=== PATIENT | female | born 1945 | race Caucasian/White ===

== ENCOUNTER 2021-09-27 10:08 | Inpatient (IN) | payer MEDICAID ==
[~2021-09-27] VITALS: Ht 165.1 cm; Wt 73.1 kg
[~2021-09-27 10:08] MED LIST: ASPIR 8181 MG PER TUBE; ATORVASTATIN CA40 MG PER TUBE; BACLOFEN 10MG T10 MG PER TUBE; CALCIUM 500 +1 EAC5 PER TUBE; CARAFATE 1 GM TA1 G1 PER TUBE; COLACE100 MG PER TUBE; DUONEB 2.5-0.5 M3 ML INH; HYDROCODON-ACE1 EAC7 PER TUBE; IRON325 PER TUBE; LEVOTHYROXIN0.025 MG PER TUBE; LIDODERM 5%1 PATC1 TOP; NITROFURANTOIN50 M2 PER TUBE; PACERONE 200 M200 M1 PER TUBE; PANTOPRAZOLE SO40 M1 PER TUBE; ROBITUSSIN100 MG/53 PER TUBE; SENNA8.6 MG PER TUBE; SENOKOT-S1 TA1 PER TUBE; TOPROL XL25 MG PO; TRAMADOL 50 MG50 MG PER TUBE; TYLENOL325 MG PER TUBE; VITAMIN D1000 UNI1 PER TUBE
[2021-09-27 10:24] VITALS: BP 111/41
[2021-09-27 10:44] LABS: INFLUENZA A ANTIGEN Negative (Negative); INFLUENZA B ANTIGEN Negative (Negative)
[2021-09-27 10:49] LABS: ABSOLUTE LYMPHOCYTES 0.9 thou/uL (0.8-5.3); ABSOLUTE MONOCYTES 0.7 thou/uL (0.0-1.2); BASOPHILS 0.3 %; HEMATOCRIT 39.2 % (37.0-47.0); LYMPHOCYTES 13.3 %; MCH 30.5 pg (26.0-34.0); MCHC 33.1 g/dL (28.0-37.0); MCV 92.1 fL (80.0-100.0); MONOCYTES 10.1 %; MPV 8.5 fl. (7.2-11.1); NUCLEATED RBCS 0 /100WBC; PLATELET COUNT* 279 thou/uL (150-400); POLYS 76.3 %; RBC 4.26 mil/uL (4.20-5.00); RDW-CV 13.9 % (10.5-14.5); WBC 6.6 thou/uL (4.0-11.0)
[2021-09-27 11:00] LABS: CALCIUM 8.3 mg/dL (8.5-10.1)
[2021-09-27 11:04] LABS: POTASSIUM 3.4 mmol/L (3.5-5.1)
[2021-09-27 11:11] LABS: ALBUMIN 2.4 g/dL (3.4-5.0); TOTAL BILIRUBIN 0.7 mg/dL (<0.1-1.0); TOTAL PROTEIN 6.8 g/dL (6.4-8.2)
[2021-09-27 13:37] LABS: INR 3.4; PROTIME 33.3 Seconds (9.20-11.50)
--- NOTE | 2021-09-27 15:25 | EKG ---
[place] [address] ELECTROCARDIOGRAM REPORT Name: AKSHATFARIHADENISE WALL Room: [place] [address] ADM IN ..#: [id number] Admission: 09/27/21 Attend Phys: Terrence Mehta, Discharge: Date of : 45 Date of Service: 09/27/21 1035 Report #: [id number] THIS REPORT FOR: //name// [facility] ED Test Date: 2021-09-27 Test Time: 10:35:19 Pat Name: DENISE WAGGONER Department: Room: [facility] Gender: F Interactive Art Director: CALVIN : 1945 Requested By: Carine Horner Order Number: [id number] MD: Joshua Whitfield Measurements Intervals [place] Rate: 72 P: -18 FL: 221 QRS: -87 QRSD: 104 T: 34 QT: 440 QTc: 482 Interpretive Statements Sinus rhythm Probable left atrial enlargement Incomplete RBBB and LAFB Consider right ventricular hypertrophy Borderline prolonged QT interval No previous ECG available for comparison Electronically Signed On 09-27-2021 15:24:56 SENIOR TELECOMMUNICATIONS CONSULTANT by Joshua Whitfield [email or web address] <ELECTRONICALLY SIGNED> By: Joshua Whitfield MD, FACC 09/27/21 1524 1035 1035 Joshua Whitfield MD, FACC /EPI
[2021-09-27 15:45] VITALS: BP 110/48
[2021-09-27 18:31] VITALS: BP 98/37
[2021-09-27 18:50] VITALS: BP 108/40
[2021-09-27 21:00] VITALS: BP 93/42
[2021-09-28] VITALS: BP 117/53
[2021-09-28 04:00] VITALS: BP 126/45
[2021-09-28 05:26] LABS: ABSOLUTE LYMPHOCYTES 0.5 thou/uL (0.8-5.3); ABSOLUTE MONOCYTES 0.2 thou/uL (0.0-1.2); ABSOLUTE NEUTROPHILS 2.9 thou/uL (1.6-8.1); BASOPHILS 0.4 %; HEMATOCRIT 37.2 % (37.0-47.0); HEMOGLOBIN 12.2 gm/dL (12.0-15.0); LYMPHOCYTES 14.8 %; MCH 30.6 pg (26.0-34.0); MCHC 32.7 g/dL (28.0-37.0); MCV 93.6 fL (80.0-100.0); MONOCYTES 4.3 %; MPV 9.3 fl. (7.2-11.1); NUCLEATED RBCS 0 /100WBC; PLATELET COUNT* 263 thou/uL (150-400); POLYS 80.5 %; RBC 3.97 mil/uL (4.20-5.00); RDW-CV 14.4 % (10.5-14.5); WBC 3.6 thou/uL (4.0-11.0)
[2021-09-28 05:36] LABS: INR 3.8; PROTIME 37.3 Seconds (9.20-11.50)
[2021-09-28 05:37] LABS: CALCIUM 8.5 mg/dL (8.5-10.1); CREATININE 0.8 mg/dL (0.6-1.3); POTASSIUM 3.4 mmol/L (3.5-5.1)
[2021-09-28] MEDS ORDERED: KEPPRA750 MG PO (07:01)
[2021-09-28] MEDS ORDERED: KEPPRA100 MG/1 M PER TUBE (07:02)
[2021-09-28 08:00] VITALS: BP 111/45
[2021-09-28 11:30] VITALS: BP 97/47
[2021-09-28 15:45] VITALS: BP 103/45
[2021-09-28 20:30] VITALS: BP 102/42
[2021-09-29] VITALS: BP 124/53
[2021-09-29 04:00] VITALS: BP 110/48
[2021-09-29 04:54] LABS: HEMOGLOBIN 11.4 gm/dL (12.0-15.0); MCH 30.2 pg (26.0-34.0); MCHC 32.5 g/dL (28.0-37.0); MCV 92.8 fL (80.0-100.0); NUCLEATED RBCS 0 /100WBC; RBC 3.77 mil/uL (4.20-5.00); RDW-CV 14.4 % (10.5-14.5); WBC 11.2 thou/uL (4.0-11.0)
[2021-09-29 04:55] LABS: PROTIME 51.2 Seconds (9.20-11.50)
[2021-09-29 05:01] LABS: ALBUMIN 2.2 g/dL (3.4-5.0); CALCIUM 8.6 mg/dL (8.5-10.1); POTASSIUM 3.5 mmol/L (3.5-5.1); TOTAL BILIRUBIN 0.4 mg/dL (<0.1-1.0); TOTAL PROTEIN 6.2 g/dL (6.4-8.2)
[2021-09-29 05:26] LABS: PLATELET COUNT* 361 thou/uL (150-400)
[2021-09-29 05:43] LABS: INR 5.3
[2021-09-29 07:05] LABS: ABSOLUTE LYMPHOCYTES 0.6 thou/uL (0.8-5.3); ABSOLUTE MONOCYTES 0.2 thou/uL (0.0-1.2); ABSOLUTE NEUTROPHILS 10.4 thou/uL (1.6-8.1)
[2021-09-29 07:07] LABS: PLATELET ESTIMATE ADEQUATE
[2021-09-29 08:00] VITALS: BP 109/49
[2021-09-29 11:30] VITALS: BP 118/47
[2021-09-29 17:29] LABS: PROTIME 61.8 Seconds (9.20-11.50)
[2021-09-29 17:34] LABS: CALCIUM 8.3 mg/dL (8.5-10.1); MAGNESIUM 2.2 mg/dL (1.8-2.4); POTASSIUM 3.5 mmol/L (3.5-5.1)
[2021-09-29 17:45] LABS: INR 6.5
[2021-09-29 17:53] VITALS: BP 108/41
[2021-09-29 20:00] VITALS: BP 145/45
--- NOTE | 2021-09-29 22:53 | CON ---
[address] [address] CONSULTATION Name: DENISE WAGGONER Room: [address] IN M.R.#: [id number] Admission: 09/27/21 Attend Phys: Terrence Mehta MD Discharge: Date of : 45 Report #: [id number] THIS REPORT FOR: cc: REINA - Mayra family physician/PCP FAM - No family physician/PCP Camilo Damon MD ~ DATE OF CONSULTATION: 09/29/2021 CONSULT HAS BEEN REQUESTED BY: Terrence Mehta MD. INDICATION FOR CONSULTATION: Acute hypoxemic respiratory failure secondary to COVID-19. HISTORY OF PRESENT ILLNESS: This is a 75-year-old female, past medical history is as mentioned below. She does have a history of COPD. She is not known to be on supplemental oxygen at home. She also has a history of a previous stroke with right sided weakness, has aphasia. She has not been vaccinated for COVID-19. At this time, she is admitted with cough, congestion and shortness of breath. The patient is noted to have bilateral infiltrates on chest x-rays including lobar infiltrates. The patient also has tested positive for COVID-19 PCR. Currently, she is on 8 liters nasal cannula. She is saturating in the mid 90s. Does not appear to be in any distress. There is significant elevation in INR as INR is now 5.3. She is on Coumadin at home for atrial fibrillation. I did talk to the caregiver. She reports that there have been no recent INRs less than 2.0. She does not have swelling of lower extremities or calf pain. Currently, clinically appears to be on the drier operator head side and sodium is elevated. The patient only speaks British. She also has a history of dysphagia and therefore is unable to provide a detailed history or review of systems. PAST MEDICAL HISTORY: COPD, coronary artery disease, atrial fibrillation, on Coumadin. I do not have a measure of her left ventricular ejection fraction available at this time. Hypothyroidism, right hip fracture, GI bleed. SOCIAL HISTORY: An extensive history of smoking, still reported to smoke. No known history of heavy alcohol use or illegal drug use. CURRENT MEDICATIONS: List in [employer] reviewed. HOME MEDICATIONS: List in [employer] reviewed. ALLERGIES: No known drug allergies. FAMILY HISTORY: [place] [address] CONSULTATION Name: ORALEULALIARACHEL DUMASALESSIO Room: [address]#: [id number] Admission: 09/27/21 Attend Phys: Terrence Mehta MD Discharge: Date of : 45 Report #: [id number] PHYSICAL EXAMINATION: GENERAL: She is drowsy. She is fully arousable. She had limited response to verbal commands. VITAL SIGNS: She has a pulse of 69 and a blood pressure of 118/47. Saturating 95%, 8 liters nasal cannula. Respiratory rate mildly elevated to 20. She is afebrile with a temperature of 36.7. HEENT: Head is normocephalic and atraumatic. NECK: Does not show raised JVP. CHEST: Breath sounds are bilaterally equal. There are bilateral basal rales. HEART: Irregular. There is no murmur. ABDOMEN: Soft and nontender. EXTREMITIES: Lower extremities, no edema, no calf tenderness. SKIN: Dry and intact. NEUROLOGIC: She did move all extremities. She is noted to have a previous history of hemiparesis. LABORATORY DATA: The patient's chest x-rays, which are consistent with COVID-19 with a superimposed bacterial infection as some of the infiltrates are lobar in [employer] reviewed. It is possible that there is a component of aspiration as well. The patient's lab work, which does show an INR elevated to 5.3 in [employer] reviewed. The patient's COVID-19 antigen is positive as mentioned above. ASSESSMENT AND PLAN: 1. Acute hypoxemic respiratory failure. This is secondary to COVID-19. The patient's x-rays are consistent with superimposed bacterial infection and she may have a component of aspiration as well. In addition, likely she has chronic obstructive pulmonary disease exacerbation. 2. COVID-19. I recommend continuing with steroid. She has been on Solu-Medrol, which is just timed out. For now, I ordered some dexamethasone, we will follow. I also recommend giving her remdesivir. I did talk to the caregiver and explained to her that in my view, the benefit of giving her remdesivir significantly outweighs risks. The patient's caregiver; however, declines use of remdesivir. Actemra is not a consideration at this time as we do not have it available. I do not strongly feel either way regarding administering convalescent plasma or holding off. The patient's caregiver states that she will think about it and let us know tomorrow. 3. Pulmonary infiltrates. Some of these infiltrates are lobar and therefore, I suspect there is a secondary bacterial infection as well. I recommend continuing with doxycycline. We will add Zosyn. We will try to do a sputum culture if feasible. I recommend strict aspiration precautions, recommend also consulting Speech for a swallow evaluation. 4. Chronic obstructive pulmonary disease exacerbation. We will continue to [address] [address] CONSULTATION Name: DENISE WAGGONER Room: [address] IN M.R.#: [id number] Admission: 09/27/21 Attend Phys: Terrence Mehta MD Discharge: Date of : 45 Report #: [id number] titrate steroids, remains on DuoNeb as well. 5. Chronic atrial fibrillation. She is on Coumadin. INR is 5.3. We will start giving a small doses of vitamin K and try to bring this down to between 2 and 3. Only 1 mg of vitamin K is ordered. We will repeat labs this evening to see trend. 6. Coronary artery disease. I would also like to do an echo. 7. Deep venous thrombosis prophylaxis, already on anticoagulation. 8. Gastrointestinal prophylaxis, Protonix. 9. Blood glucose monitoring already ordered by primary service. 10. Hypokalemia. We will replace. Recommend also checking a magnesium level. Thanks for this consultation. <ELECTRONICALLY SIGNED> By: Camilo Damon MD 09/29/21 2253 1217 [id number] Damon MD /nt
[2021-09-30] VITALS: BP 128/50
[2021-09-30 04:00] VITALS: BP 128/57
[2021-09-30 04:40] LABS: ABSOLUTE LYMPHOCYTES 0.4 thou/uL (0.8-5.3); ABSOLUTE MONOCYTES 0.6 thou/uL (0.0-1.2); ABSOLUTE NEUTROPHILS 9.4 thou/uL (1.6-8.1); BASOPHILS 0.1 %; HEMOGLOBIN 11.1 gm/dL (12.0-15.0); LYMPHOCYTES 4.1 %; MCH 30.3 pg (26.0-34.0); MCHC 32.6 g/dL (28.0-37.0); MCV 93.2 fL (80.0-100.0); MONOCYTES 5.3 %; MPV 8.9 fl. (7.2-11.1); NUCLEATED RBCS 0 /100WBC; PLATELET COUNT* 391 thou/uL (150-400); POLYS 90.5 %; RBC 3.65 mil/uL (4.20-5.00); RDW-CV 14.4 % (10.5-14.5); WBC 10.4 thou/uL (4.0-11.0)
[2021-09-30 04:51] LABS: PROTIME 43.9 Seconds (9.20-11.50)
[2021-09-30 05:14] LABS: INR 4.5
[2021-09-30 05:26] LABS: CALCIUM 8.3 mg/dL (8.5-10.1); MAGNESIUM 2.2 mg/dL (1.8-2.4); POTASSIUM 3.4 mmol/L (3.5-5.1); TOTAL BILIRUBIN 0.5 mg/dL (<0.1-1.0); TOTAL PROTEIN 5.8 g/dL (6.4-8.2)
[2021-09-30 08:00] VITALS: BP 131/46
[2021-09-30 12:12] VITALS: BP 133/46
--- NOTE | 2021-09-30 13:23 | 2DMMODE ---
[place] [address] 2 D/M-MODE ECHOCARDIOGRAM Name: DENISE WAGGONER Room: [address] IN .R.#: [id number] Admission: 09/27/21 Attend Phys: Terrence Mehta, Discharge: Date of : 45 Date of Service: 09/30/21 1323 Report #: [id number] THIS REPORT FOR: cc: FAM - No family physician/PCP FAM - No family physician/PCP Joshua Whitfield MD [facility] ~ APPROVED REPORT Study performed: 09/30/2021 10:32:58 EXAM: Comprehensive 2D, Doppler, and color-flow Echocardiogram Patient Location: In-Patient Room #: 108 Status: routine BSA: 1.80 HR: 65 bpm BP: 128/57 mmHg Rhythm: NSR Other Information Study Quality: Good Indications Dyspnea 2D Dimensions IVSd: 10.04 (7-11mm) LVOT Diam: 20.28 (18-24mm) LVDd: 50.16 mm PWd: 10.83 (7-11mm) LVDs: 22.85 (25-40mm) Aortic Root: 28.54 mm Volumes Left Atrial Volume (Systole) LA ESV Index: 49.00 mL/m2 Aortic Valve AoV Peak Jonathon.: 3.04 m/s AO Peak Gr.: 37.05 mmHg LVOT Max P.36 mmHg AO Mean Gr.: 20.93 mmHg LVOT Mean P.00 mmHg LVOT Max V: 1.36 m/s AO V2 VTI: 75.57 cm LVOT Mean V: 0.94 m/s ARUN (VTI): 1.62 cm2 LVOT V1 VTI: 37.90 cm AI Mora: 2.68 m/s2 [place] [address] 2 D/M-MODE ECHOCARDIOGRAM Name: DENISE WAGGONER Room: [address] IN .R.#: [id number] Admission: 09/27/21 Attend Phys: Terrence Mehta, Discharge: Date of : 45 Date of Service: 09/30/21 1323 Report #: [id number] AI PHT: 415.45 ms Mitral Valve MV Mean Gr.: 10.12 mmHg E/A Ratio: 1.03 MV Decel. Time: 538.84 ms MV E Max Jonathon.: 2.26 m/s MV PHT: 156.26 ms MVA (PHT): 1.41 cm2 TDI E/Lateral E': 32.29 E/Medial E': 45.20 Medial E' Jonathon.: 0.05 m/s Lateral E' Jonathon.: 0.07 m/s Pulmonary Valve PV Peak Jonathon.: 1.05 m/s PV Peak Gr.: 4.42 mmHg Tricuspid Valve RAP Estimate: 5.00 mmHg TR Peak Gr.: 34.42 mmHg RVSP: 39.00 mmHg PA Pressure: 39.00 mmHg Left Ventricle The left ventricle is normal size. There is normal LV segmental wall motion. There is normal left ventricular wall thickness. Left ventricular systolic function is normal. LVEF is >70%. Transmitral Doppler flow pattern suggests impaired LV relaxation. Right Ventricle The right ventricle is normal size. The right ventricular systolic function is normal. Atria Left atrium is severely dilated. The right atrium size is normal. Aortic Valve Moderate aortic valve sclerosis. Mild aortic regurgitation. Mild aortic stenosis. Mitral Valve Moderate mitral annular calcification. Mild mitral regurgitation. Moderate mitral stenosis. Tricuspid Valve The tricuspid valve is normal in structure[place] [address] 2 D/M-MODE ECHOCARDIOGRAM Name: DENISE WAGGONER Room: [address]#: [id number] Admission: 09/27/21 Attend Phys: Terrence Mehta, Discharge: Date of : 45 Date of Service: 09/30/21 1323 Report #: [id number] regurgitation. Mild pulmonary hypertension. Pulmonic Valve The pulmonary valve is normal in structure. There is no pulmonic valvular regurgitation. Great Vessels The aortic root is normal in size. IVC is normal in size and collapses >50% with inspiration. Pericardium There is no pericardial effusion. <Conclusion> The left ventricle is normal size. There is normal left ventricular wall thickness. Left ventricular systolic function is normal. LVEF is >70%. Transmitral Doppler flow pattern suggests impaired LV relaxation. Left atrium is severely dilated. Moderate aortic valve sclerosis. Mild aortic regurgitation. Mild aortic stenosis. Moderate mitral annular calcification. Mild mitral regurgitation. Moderate mitral stenosis. Trace tricuspid regurgitation. Mild pulmonary hypertension. IVC is normal in size and collapses >50% with inspiration. <ELECTRONICALLY SIGNED> By: Joshua Whitfield MD, FACC 09/30/21 1323 132 132 Joshua Whitfield MD, FACC /INF
[2021-09-30 16:05] VITALS: BP 128/53
[2021-09-30 20:45] VITALS: BP 127/57
[2021-10-01 00:55] VITALS: BP 133/59
[2021-10-01 04:00] VITALS: BP 140/62
[2021-10-01 04:46] LABS: ABSOLUTE LYMPHOCYTES 0.6 thou/uL (0.8-5.3); ABSOLUTE MONOCYTES 0.5 thou/uL (0.0-1.2); ABSOLUTE NEUTROPHILS 8.3 thou/uL (1.6-8.1); BASOPHILS 0.4 %; HEMATOCRIT 34.7 % (37.0-47.0); HEMOGLOBIN 11.4 gm/dL (12.0-15.0); LYMPHOCYTES 6.3 %; MCH 30.6 pg (26.0-34.0); MCHC 32.7 g/dL (28.0-37.0); MCV 93.5 fL (80.0-100.0); MONOCYTES 5.2 %; MPV 8.4 fl. (7.2-11.1); NUCLEATED RBCS 0 /100WBC; PLATELET COUNT* 391 thou/uL (150-400); POLYS 88.1 %; RBC 3.71 mil/uL (4.20-5.00); RDW-CV 14.8 % (10.5-14.5); WBC 9.4 thou/uL (4.0-11.0)
[2021-10-01 05:22] LABS: PROTIME 24.5 Seconds (9.20-11.50)
[2021-10-01 05:25] LABS: ALBUMIN 2.1 g/dL (3.4-5.0); CALCIUM 8.3 mg/dL (8.5-10.1); CREATININE 0.8 mg/dL (0.6-1.3); MAGNESIUM 2.1 mg/dL (1.8-2.4); POTASSIUM 4.2 mmol/L (3.5-5.1); TOTAL BILIRUBIN 0.5 mg/dL (<0.1-1.0); TOTAL PROTEIN 5.8 g/dL (6.4-8.2)
[2021-10-01 05:35] LABS: INR 2.5
[2021-10-01 08:10] VITALS: BP 163/75
[2021-10-01 13:33] VITALS: BP 119/52
[2021-10-01 17:12] VITALS: BP 136/52
[2021-10-01 20:00] VITALS: BP 130/53
[2021-10-02] VITALS: BP 141/543
[2021-10-02 04:37] VITALS: BP 113/56
[2021-10-02 06:20] LABS: RDW-CV 14.6 % (10.5-14.5)
[2021-10-02 06:22] LABS: ABSOLUTE BASOPHILS 0.1 thou/uL (0.0-0.2); ABSOLUTE LYMPHOCYTES 0.8 thou/uL (0.8-5.3); ABSOLUTE MONOCYTES 0.7 thou/uL (0.0-1.2); ABSOLUTE NEUTROPHILS 8.5 thou/uL (1.6-8.1); BASOPHILS 0.6 %; HEMOGLOBIN 12.2 gm/dL (12.0-15.0); LYMPHOCYTES 7.5 %; MCH 30.6 pg (26.0-34.0); MCHC 32.9 g/dL (28.0-37.0); MCV 92.9 fL (80.0-100.0); MONOCYTES 6.8 %; MPV 8.4 fl. (7.2-11.1); NUCLEATED RBCS 1 /100WBC; PLATELET COUNT* 433 thou/uL (150-400); POLYS 85.1 %; RBC 3.98 mil/uL (4.20-5.00)
[2021-10-02 06:48] LABS: INR 1.6; PROTIME 16.6 Seconds (9.20-11.50)
[2021-10-02 06:54] LABS: CALCIUM 8.3 mg/dL (8.5-10.1); MAGNESIUM 1.9 mg/dL (1.8-2.4); POTASSIUM 3.5 mmol/L (3.5-5.1)
[2021-10-02 08:17] VITALS: BP 114/50
[2021-10-02 12:00] VITALS: BP 94/40
[2021-10-02 16:00] VITALS: BP 100/39; BP 134/72
[2021-10-02 20:00] VITALS: BP 110/43
[2021-10-03] VITALS: BP 125/54
[2021-10-03 04:00] VITALS: BP 125/58
[2021-10-03 05:38] LABS: ABSOLUTE LYMPHOCYTES 0.6 thou/uL (0.8-5.3); ABSOLUTE MONOCYTES 0.3 thou/uL (0.0-1.2); ABSOLUTE NEUTROPHILS 6.6 thou/uL (1.6-8.1); BASOPHILS 0.3 %; HEMATOCRIT 34.6 % (37.0-47.0); HEMOGLOBIN 11.4 gm/dL (12.0-15.0); LYMPHOCYTES 7.7 %; MCH 30.4 pg (26.0-34.0); MCV 92.2 fL (80.0-100.0); MPV 8.1 fl. (7.2-11.1); NUCLEATED RBCS 0 /100WBC; PLATELET COUNT* 383 thou/uL (150-400); RBC 3.75 mil/uL (4.20-5.00); RDW-CV 14.3 % (10.5-14.5); WBC 7.5 thou/uL (4.0-11.0)
[2021-10-03 05:58] LABS: CALCIUM 7.7 mg/dL (8.5-10.1); CREATININE 0.9 mg/dL (0.6-1.3); POTASSIUM 4.2 mmol/L (3.5-5.1)
[2021-10-03 06:01] LABS: INR 1.6; PROTIME 15.8 Seconds (9.20-11.50)
[2021-10-03 08:00] VITALS: BP 112/65
[2021-10-03 12:47] VITALS: BP 96/37
[2021-10-03 15:45] VITALS: BP 106/49
[2021-10-03 20:00] VITALS: BP 97/34
[2021-10-04] VITALS: BP 129/50
[2021-10-04 04:34] VITALS: BP 144/52
[2021-10-04 07:12] LABS: HEMOGLOBIN 11.9 gm/dL (12.0-15.0); MCH 30.2 pg (26.0-34.0); MCHC 32.3 g/dL (28.0-37.0); MCV 93.5 fL (80.0-100.0); NUCLEATED RBCS 0 /100WBC; PLATELET COUNT* 324 thou/uL (150-400); RBC 3.96 mil/uL (4.20-5.00); RDW-CV 14.5 % (10.5-14.5); WBC 9.2 thou/uL (4.0-11.0)
[2021-10-04 07:58] LABS: CREATININE 0.9 mg/dL (0.6-1.3); MAGNESIUM 2.2 mg/dL (1.8-2.4); PHOSPHORUS* 3.9 mg/dL (2.5-4.9); POTASSIUM 4.5 mmol/L (3.5-5.1)
[2021-10-04 08:00] VITALS: BP 145/60
[2021-10-04 08:28] LABS: INR 2.2; PROTIME 22.2 Seconds (9.20-11.50)
[2021-10-04 09:07] LABS: ABSOLUTE LYMPHOCYTES 0.9 thou/uL (0.8-5.3); ABSOLUTE MONOCYTES 0.6 thou/uL (0.0-1.2); ABSOLUTE NEUTROPHILS 7.7 thou/uL (1.6-8.1); PLATELET ESTIMATE ADEQUATE
[2021-10-04 12:00] VITALS: BP 132/59
[2021-10-04 18:17] VITALS: BP 123/47
[2021-10-04 20:00] VITALS: BP 103/43
[2021-10-05 00:54] VITALS: BP 130/51
[2021-10-05 04:00] VITALS: BP 121/40
[2021-10-05 08:00] VITALS: BP 124/42
[2021-10-05 12:49] VITALS: BP 125/86
[2021-10-05 20:00] VITALS: BP 114/41
[2021-10-06 00:51] VITALS: BP 124/45
[2021-10-06 04:00] VITALS: BP 127/66
[2021-10-06 05:23] LABS: PROTIME 43.9 Seconds (9.20-11.50)
[2021-10-06 05:24] LABS: INR 4.5
[2021-10-06 08:20] VITALS: BP 121/45
[2021-10-06 11:51] VITALS: BP 115/41
[2021-10-06 16:14] VITALS: BP 108/38
[2021-10-06 20:00] VITALS: BP 125/55
[2021-10-07 00:43] VITALS: BP 109/41
[2021-10-07 04:41] VITALS: BP 140/57
[2021-10-07 05:34] LABS: PROTIME 55.6 Seconds (9.20-11.50)
[2021-10-07 05:52] LABS: INR 5.8
[2021-10-07 08:00] VITALS: BP 116/42
[2021-10-07] MEDS ORDERED: KEPPRA100 MG/1 M PO (09:30)
[2021-10-07] MEDS ORDERED: LIPITOR 40 MG T40 M1 PO (09:30)
[2021-10-07] MEDS ORDERED: ASA81BEC PO (09:30)
[2021-10-07] MEDS ORDERED: PROTONIX40 M2 PO (09:30)
[2021-10-07] MEDS ORDERED: SENNA PLUS TAB1 EACH PO (09:30)
[2021-10-07] MEDS ORDERED: PACERONE 200 M200 M1 PO (09:30)
[2021-10-07] MEDS ORDERED: DEXAMETHASONE 22 M1 PO (09:30)
[2021-10-07] MEDS ORDERED: TRAMADOL 50 MG50 MG PO (09:30)
[2021-10-07] MEDS ORDERED: SENEXON-S 50-81 EACH PO (09:30)
[2021-10-07] MEDS ORDERED: COLACE 100 MG100 MG PO (09:30)
[2021-10-07] MEDS ORDERED: VITAMIN D325 MC2 PO (09:30)
[2021-10-07 11:36] VITALS: BP 128/51
[2021-10-07 14:54] VITALS: BP 128/51
[2021-10-07 14:56] VITALS: BP 128/51
== END 2021-10-07 18:40 | disposition home health service (06) | DRG 177 ==
LOC: M.ERS 10:08 → M.ORTHSURG 11:44 → M.TBA-ER 11:44 → M.ORTHSURG 18:36 → M.2W 10-07
PROVIDERS: Internal Medicine; Internal Medicine Critical Care Medicine; Nurse Practitioner Family; ADMIT Internal Medicine; ATTEND Internal Medicine
PROC: 5A0935A Assistance with Respiratory Ventilation, Less than 24 Consecutive Hours, High Flow/Velocity Cannula (ICD-10-PCS; principal; 2021-09-28)
PROC: 05HY33Z Insertion of Infusion Device into Upper Vein, Percutaneous Approach (ICD-10-PCS; 2021-09-29)
PROC: 5A0935A Assistance with Respiratory Ventilation, Less than 24 Consecutive Hours, High Flow/Velocity Cannula (ICD-10-PCS; 2021-09-29)
PROC: 5A0935A Assistance with Respiratory Ventilation, Less than 24 Consecutive Hours, High Flow/Velocity Cannula (ICD-10-PCS; 2021-09-30)
PROC: 5A0935A Assistance with Respiratory Ventilation, Less than 24 Consecutive Hours, High Flow/Velocity Cannula (ICD-10-PCS; 2021-10-01)
PROC: 5A0935A Assistance with Respiratory Ventilation, Less than 24 Consecutive Hours, High Flow/Velocity Cannula (ICD-10-PCS; 2021-10-03)
PROC: 5A0935A Assistance with Respiratory Ventilation, Less than 24 Consecutive Hours, High Flow/Velocity Cannula (ICD-10-PCS; 2021-10-04)
DX: U07.1 COVID-19 (principal); J12.82 Pneumonia due to coronavirus disease 2019; J96.21 Acute and chronic respiratory failure with hypoxia; I48.20 Chronic atrial fibrillation, unspecified; I25.10 Atherosclerotic heart disease of native coronary artery without angina pectoris; E27.9 Disorder of adrenal gland, unspecified; E16.2 Hypoglycemia, unspecified; E03.9 Hypothyroidism, unspecified; E87.6 Hypokalemia; F17.210 Nicotine dependence, cigarettes, uncomplicated; J43.9 Emphysema, unspecified; I69.320 Aphasia following cerebral infarction